=== PATIENT | male | born 1950 | race Caucasian/White ===

== ENCOUNTER → 2018-05-19 | Outpatient (CLI) | payer MEDICARE ==
[~2018-05-19] VITALS: Ht 175.3 cm; Wt 103.9 kg
[~2018-05-19] MED LIST: ARTIFICIAL TEAR15 M1 OPHTHALMIC; ASPERDRINK81 MG PO; ASPIR 8181 MG PO; CARDIZEM CD 30300 M1 PO; CARTIA XT240 M1 PO; EFFIENT10 MG PO; FISH OIL 1,001000 M2 PO; GLUCOPHAGE XR500 MG PO; GLUCOPHAGE500 MG PO; HYDRALAZINE 10M10 MG PO; HYDRALAZINE 5050 MG PO; HYDROCHLOROTHIA25 M1 PO; I-CAPS AREDS S1 EACH PO; LISINOPRIL30 MG PO; METFORMIN HCL500 MG PO; MULTI VITAMIN1 EACH PO; NICOTINE TRANSD21 M1 TRANSDERM; NITROGLYCERIN0.4 MG SUBLING; PLAVIX 75 MG TA75 M1 PO; POTASSIUM CITR10 ME1 PO; SIMVASTATIN40 MG PO; VITAMIN B-12500 MCG PO; VITAMIN D31000 UNI2 PO; VITAMIN D5000 UNIT PO
[2018-05-19 09:11] VITALS: BP 156/69
[2018-05-19 09:32] LABS: HEMATOCRIT 45.3 % (42.0-52.0); HEMOGLOBIN 15.4 gm/dL (14.0-18.0); MCH 29.9 pg (26.0-34.0); MCHC 33.9 g/dL (28.0-37.0); MCV 88.2 fL (80.0-100.0); RBC 5.14 mil/uL (4.50-6.00); RDW-CV 13.5 % (10.5-14.5); WBC 10.4 thou/uL (4.0-11.0)
[2018-05-19 09:41] LABS: ANION GAP 10 mmol/L (7-16); BUN 15 mg/dL (7-18); CALCIUM 9.6 mg/dL (8.5-10.1); CHLORIDE 102 mmol/L (98-107); CO2 28 mmol/L (21-32); CREATININE 1.3 mg/dL (0.6-1.3); GLUCOSE 201 mg/dL (70-99); POTASSIUM 3.9 mmol/L (3.5-5.1); SODIUM 140 mmol/L (136-145)
[2018-05-19 09:46] LABS: ALBUMIN 3.6 g/dL (3.4-5.0); ALKALINE PHOSPHATASE 67 U/L (46-116); SGOT 20 U/L (15-37); SGPT 27 U/L (30-65); TOTAL BILIRUBIN 0.5 mg/dL (<0.1-1.0); TOTAL PROTEIN 7.9 g/dL (6.4-8.2)
[2018-05-19 10:12] LABS: CHOLESTEROL 145 mg/dL (<200); HDL CHOLESTEROL 37 mg/dL (>40); LDL CHOLESTEROL 76 mg/dL (<100); TC:HDL 3.9 Ratio (Not establshd); TRIGLYCERIDE 163 mg/dL (<150); VLDL 33 mg/dL (<40)
[2018-05-19 10:13] LABS: SERUM ASSESSMENT Clear
[2018-05-19 12:14] VITALS: BP 163/58
[2018-05-19 12:33] VITALS: BP 153/73
[2018-05-19 14:09] VITALS: BP 167/79
--- NOTE | 2018-05-19 15:37 | EKG ---
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
--- NOTE | 2018-05-19 16:35 | CARD ---
[address] [address] CARDIAC CATH REPORT Name: MICHAELLONNY MYERS Room: [facility] KARIN OjedaSuzanna.#: [id number] Admission: 05/19/18 Attend Phys: Skip Mari MD, Discharge: Date of : 46 Report #: [id number] THIS REPORT FOR: //name// APPROVED REPORT Study performed: 05/19/2018 10:48:29 Patient Details The patient is a 67 year-old male Event Personnel Tatianna Rader RN Delivery Director, Segun Rollins Holkins, John Physical Therapy Attendant, Lonny Busby Scrub Procedures Performed Left Heart Cath w/or w/o Coronaries [id number] [facility] , Right transradial approachLeft Heart Cath w/or w/o Coronaries [id number] [facility] , Left Heart Catheterization Indication Positive stress test Risk Factors Hypercholesterolemia, Hypertension Previous Procedures/Diagnoses Previous PCI Procedure Narrative The patient was brought electively to the Cardiac Catheterization Laboratory and was prepped and draped in a sterile manner. The right femoral was infiltrated with 2% Lidocaine subcutaneous anesthesia. A [place] 6 FR sheath was inserted into the right femoral artery. Coronary angiography was performed using coronary diagnostic catheters. The right coronary system was accessed and visualized with a JL4 catheter. The left coronary system was accessed and visualized with a LR4 catheter. The left ventricle was accessed and visualized with a Straight PIG catheter. Left ventricular/Aortic Valve gradient assessed via catheter pullback. Pre-demployment femoral angiogram was performed . Closure device was deployed with a Fr Mynx. The patient tolerated the procedure well and there were no complications associated with the procedure. There was no hematoma. Intraoperative Conscious Sedation Sedation start time: 1110 Case end Time: [place] [address] CARDIAC CATH REPORT Name: LONNY RODRIGUEZ Room: [facility]#: [id number] Admission: 05/19/18 Attend Phys: Skip Mari MD, Discharge: Date of : 46 Report #: [id number] Fentanyl 25.0 mcg Versed 2.0 mg Dose: 154 mGy Contrast Type and Amount: Visipaque 130 ml Diagnostic Cath Left Main 30% distal left main coronary artery narrowing LAD A 90% ostial proximal LAD stenosis with aneurysmal dilatation of the prominent first diagonal branch Circumflex 90% heavily calcified proximal circumflex stenosis with 50% calcified mid vessel stenosis Right Coronary Large dominant vessel with 90% heavily calcified proximal stenosis with aneurysmal dilatation of the proximal mid and distal portions Left Ventriculography The left ventricle is normal in size with normal contractility. The left ventricular ejection fraction is estimated to be 60%. Left ventricular wall motion abnormalities are present. There is no mitral insufficiency. Mild anterior hypokinesis is noted Hemodynamics The aortic pressure is 136/50 mmHg with a mean of 82 mmHg. The left ventricular pressure is 140/2 mmHg with a mean of mmHg. The left ventricular end diastolic pressure is 14 mmHg. There was no gradient across the aortic valve upon pullback. Conclusion #1 significant coronary artery disease characterized by the following: A 30% distal left main coronary artery narrowing B 80-90% eccentric heavily calcified proximal LAD stenosis with aneurysmal dilatation of the proximal portion of the first diagonal branch C 90% heavily calcified proximal circumflex stenosis with 50% calcified mid circumflex stenosis B large dominant right coronary artery with 90% heavily calcified proximal stenosis with aneurysmal dilatation of the proximal mid and distal portions of this dominant vessel #2 normal left-[place] [address] CARDIAC CATH REPORT Name: MICHAELLONNY MYERS Room: [facility]#: [id number] Admission: 05/19/18 Attend Phys: Skip Mari MD, Discharge: Date of : 46 Report #: [id number] #3 normal left ventricular ejection fraction of 60% with mild anterior hypokinesis noted Recommendations Cardiac Risk Reduction Program CABG Diagnostic Cath Approved by: Skip Mari MD Date/Time: 05/19/2018 16:34:27 <ELECTRONICALLY SIGNED> By: Skip Mari MD, [facility] 05/19/18 1635 1635 1635John Rosalia Mari MD, FACC /INF
== END | disposition home or self-care (01) ==
LOC: M.CL 08:57
PROVIDERS: Internal Medicine
DX: I25.10 Atherosclerotic heart disease of native coronary artery without angina pectoris (principal); I10 Essential (primary) hypertension; E11.9 Type 2 diabetes mellitus without complications; E78.00 Pure hypercholesterolemia, unspecified; Z96.651 Presence of right artificial knee joint; Z87.442 Personal history of urinary calculi; Z79.82 Long term (current) use of aspirin; Z79.899 Other long term (current) drug therapy; Z79.01 Long term (current) use of anticoagulants

== ENCOUNTER → 2018-08-15 | Outpatient (CLI) | payer MEDICARE | LOC: M.RAD 15:57 | DX: I70.0 Atherosclerosis of aorta (principal); Z88.5 Allergy status to narcotic agent ==

== ENCOUNTER 2018-09-22 09:27 | Inpatient (IN) | payer MEDICARE ==
[~2018-09-22] VITALS: Ht 172.7 cm; Wt 103.4 kg
[2018-09-22] MEDS ORDERED: ELIQUIS5 MG PO (10:17)
[2018-09-22 10:42] LABS: HEMATOCRIT 40.8 % (42.0-52.0); HEMOGLOBIN 13.3 gm/dL (14.0-18.0); MCH 26.1 pg (26.0-34.0); MCHC 32.6 g/dL (28.0-37.0); MCV 79.9 fL (80.0-100.0); MPV 7.8 fl. (7.2-11.1); RBC 5.11 mil/uL (4.50-6.00); RDW-CV 21.8 % (10.5-14.5); WBC 10.4 thou/uL (4.0-11.0)
[2018-09-22] MEDS ORDERED: IRON325 PO (10:47)
[2018-09-22 10:57] LABS: ALBUMIN 3.7 g/dL (3.4-5.0); CALCIUM 9.5 mg/dL (8.5-10.1); CREATININE 1.3 mg/dL (0.6-1.3); TOTAL BILIRUBIN 0.6 mg/dL (<0.1-1.0); TOTAL PROTEIN 7.7 g/dL (6.4-8.2)
[2018-09-22 11:00] VITALS: BP 152/69
[2018-09-22 12:00] VITALS: BP 161/61
--- NOTE | 2018-09-22 12:51 | EKG ---
[place] [address] ELECTROCARDIOGRAM REPORT Name: LONNY RODRIGUEZ Room: [address] ADM IN M.R.#: [id number] Admission: 09/22/18 Attend Phys: Skip Mari MD, Discharge: Date of : 46 Report #: [id number] THIS REPORT FOR: //name// [facility] Test Date: 2018-09-22 Test Time: 10:22:47 Pat Name: LONNY RODRIGUEZ Department: Room: [facility] Gender: M Electrical Calibrator: : 1950 Requested By: Skip Mari Order Number: [id number] Dio MD: Skip Mari Measurements Intervals [place] Rate: 55 P: [place]: QRS: -43 QRSD: 128 T: 240 QT: 562 QTc: 538 Interpretive Statements Atrial flutter LVH with IVCD, LAD and secondary repol abnrm Prolonged QT interval Baseline wander in lead(s) V2 Compared to ECG 05/19/2018 09:41:44 Intraventricular conduction delay more pronounced Prolonged QT interval now present Sinus rhythm no longer present Electronically Signed On 09-22-2018 12:50:57 CDT by Skip Mari [email or web address] <ELECTRONICALLY SIGNED> By: Skip Mari MD, FAC 09/22/18 1250 1022 1022 Skip Mari MD, FAC /EPI
[2018-09-22 16:00] VITALS: BP 150/57
--- NOTE | 2018-09-22 16:40 | NUR ---
pt admitted directly from pacu on tele floor report received from pacu nurse. pt is aox4 pleasant. on . oxygen saturation is 98%. vs taken. see chart. pt has no complaint at this time. tracing aflutter in the director of cardiac cath lab. heart rate in the 50s. pt ate dinner. pt up stand by. will continue to monitor
--- NOTE | 2018-09-22 17:07 | NUR ---
ELIQUIS PILL WAS BROUGHT UP BY PACU NURSE. WILL SAVE PILL IN PT PIXIS ACCESS BOX.
--- NOTE | 2018-09-22 17:46 | NUR ---
AMNIODERONE FIRST DOES ALREADY ADMINISTERED THIS AM. NEXT DOSE IS SCHEDULED FOR TONIGHT AT 2100
[2018-09-22 19:45] VITALS: BP 169/81
--- NOTE | 2018-09-22 20:34 | NUR ---
PATIENT'S HEART RATE LOWER 50'S, ASYMPTOMATIC. PATIENT HAS SCHEDULED CARDIZEM AND AMIODARONE FOR 2100. DR. MCKEON PAGED TO CLARIFY. ORDERS RECEIVED TO HOLD CARDIZEM AND ADMINISTER AMIODARONE.
[2018-09-23] VITALS (7 sets, daily range): BP systolic 124–169; BP diastolic 63–69
--- NOTE | 2018-09-23 05:40 | NUR ---
PATIENT PARTIALLY PROGRESSING TOWARDS GOALS: AFLUTTER RATE CONTROLLED WITH ORAL MEDS PER JUL. HEART RATE OCCASIONALLY DROPS TO UPPER 30'S BUT RETURNS TO 40-50S. PATIENT ASYMPTOMATIC. PATIENT ANTICIPATING CARDIOVERSION TOMORROW 09/24. DENIES PAIN AND DISCOMFORT. VERY PLEASANT THIS SHIFT. RESTED WELL. CALL LIGHT WITHIN REACH
--- NOTE | 2018-09-23 07:15 | NUR ---
ASSUMED CARE OF PT ASSESSED AND DOCUMENTED. PT IS ON CARDIAC MONITER TRACING A FLUTTER HR 61. PT IS A&O WITH NO C/O PAIN. HE IS ON ROOM AIR. VSS WNL. PT IS AFEBRILE. IS AT BEDSIDE. BED IS IN LOW POSTION CALL LIGHT IS IN REACH. WM.
--- NOTE | 2018-09-23 12:58 | EKG ---
[place] [address] ELECTROCARDIOGRAM REPORT Name: MICHAELLONNY PASHA Room: [address] ADM IN M.R.#: [id number] Admission: 09/22/18 Attend Phys: Skip Mari MD, Discharge: Date of : 46 Report #: [id number] THIS REPORT FOR: //name// [facility] Test Date: 2018-09-23 Test Time: 08:31:56 Pat Name: LONNY RODRIGUEZ Department: Room: [facility] Gender: M Supervisor Electrolytic Tinning: : 1950 Requested By: Skip Mari Order Number: [id number] Reading MD: Nas Zhang Measurements Intervals [place] Rate: 63 P: [place]: QRS: -49 QRSD: 136 T: QT: 472 QTc: 484 Interpretive Statements Atrial flutter LVH with IVCD, LAD and secondary repol abnrm Borderline prolonged QT interval Compared to ECG 09/22/2018 10:22:47 No significant changes Electronically Signed On 09-23-2018 12:58:12 CDT by Nas Zhang [email or web address] <ELECTRONICALLY SIGNED> By: Nas Zhang MD, [facility] 09/23/18 1258 0831 0831 Nas Zhang MD, [facility] /EPI
--- NOTE | 2018-09-23 15:42 | NUR ---
cm completed initial assessment to discss d/c planning. pt is a&ox4. pt present in room. pt active and independent w/all adl's. pt retired. still drives. pt has support from and extended family. pt has hx w/[facility]. pt is currently receiving cardiac rehab, outpatient therapy at [facility] in [place]. pt has c-pac machine at home that he uses sometimes. pt plans to contine w/therapy at time of d/c. cm to remain available to assist as needed.
--- NOTE | 2018-09-23 17:24 | NUR ---
PT HAS RESTED IN HIS ROOM WITH AT BEDSIDE. HE HAS HAD NO C/O PAIN OR DISCOMFORT. EDUCATION GIVEN ON DEMAND. HOURLY ROUNDING CONT.
[2018-09-24] VITALS (12 sets, daily range): BP systolic 133–169; BP diastolic 58–96
--- NOTE | 2018-09-24 07:05 | NUR ---
PATIENT PROGRESSING TOWARDS GOALS: REMAINS IN AFLUTTER, RATE CONTROLLED IN 40-60S. ASYMPTOMATIC DURING TIMES OF BRADYCARDIA. PATIENT ANTICIPATING BUDDY AND DCCV TODAY. NPO POST MIDNIGHT. CONSENT SIGNED AND IN CHART. CALL LIGHT WITHIN REACH
--- NOTE | 2018-09-24 10:29 | NUR ---
PT ALERT AND ORIENTED. TELE TRACKING AFLUTTER AND ALL VSS ON ROOM AIR. DENIES CP, SOA. REMAINS NPO FOR CARDIOVERSION LATER TODAY. EDUCATED ON SAFETY AND PLAN OF CARE. PLEASE SEE ASSESSMENT FOR ADDITIONAL INFORMATION. WILL CONT TO MONITOR
--- NOTE | 2018-09-24 10:38 | NUR ---
Pt to have cardioversion today.
--- NOTE | 2018-09-24 13:22 | EKG ---
[place] [address] ELECTROCARDIOGRAM REPORT Name: MICHAELLONNY PASHA Room: [address] ADM IN M.R.#: [id number] Admission: 09/22/18 Attend Phys: Skip Mari MD, Discharge: Date of : 46 Report #: [id number] THIS REPORT FOR: //name// [facility] Test Date: 2018-09-24 Test Time: 08:49:48 Pat Name: LONNY RODRIGUEZ Department: Room: [facility] Gender: M Boiler Erector: : 1950 Requested By: Skip Mari Order Number: [id number] Dio MD: Skip Mari Measurements Intervals [place] Rate: 54 P: [place]: QRS: -43 QRSD: 129 T: 165 QT: 463 QTc: 439 Interpretive Statements Atrial flutter LVH with IVCD, LAD and secondary repol abnrm Compared to ECG 09/23/2018 08:31:56 No significant changes Electronically Signed On 09-24-2018 13:22:07 CDT by Skip Mari [email or web address] <ELECTRONICALLY SIGNED> By: Skip Mari MD, [facility] 09/24/18 1322 0849 0849 Skip Mari MD, [facility] /EPI
[2018-09-25 04:00] VITALS: BP 134/53
--- NOTE | 2018-09-25 04:13 | NUR ---
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
[2018-09-25 05:19] LABS: CALCIUM 9.2 mg/dL (8.5-10.1); CREATININE 1.4 mg/dL (0.6-1.3); MAGNESIUM 2.1 mg/dL (1.8-2.4); POTASSIUM 3.9 mmol/L (3.5-5.1)
--- NOTE | 2018-09-25 06:47 | NUR ---
THIS NURSE ASSUMES CARE OF PT 09/24/18 AT 1930 PT ALERT AND ORIENTED, C/O LOW BACK PAIN AND REFUSES ANY INTERVENTION FOR PAIN, PT UP AND DOWN THROUGHOUT THE NIGHT FOR BRP WITH STANDBY ASSIST, DENIES ANY FURTHER DIZZINESS, IVF THERAPY COMPLETE PER MAR,PT CONTINUES TO COMPLAIN OF CONGESTION, DRY COUGH NOTED, PT EXPRESSES CONCERNS ABOUT DOSAGE OF LONGACTING INSULIN, ISSUES ADDRESSED WITH ZEINAB, NO FURTHER QUESTIONS/CONCERNS EXPRESSED, PT RESTING QUIETLY IN BED WITH FALL PRECAUTIONS IN PLACE
[2018-09-25 08:00] VITALS: BP 146/80
--- NOTE | 2018-09-25 09:27 | NUR ---
RECEIVED REPORT FROM LIV AND ASSUMED CARE OF PT @ 1678.PT IS A/O X4,VSS,TRACING SR WITH 1ST BBB ON THE MONITOR.PT REMAINS ON 2L O2 NC.IV PATENT AND SALINE LOCKED.PT IS CALM AND COOPERATIVE WITH NO C/O PAIN. AT BEDSIDE.PT IS UP AD PAPI IN ROOM WITH CALL LIGHT WITHIN REACH.WILL CONTINUE TO MONITOR.
[2018-09-25 10:46] VITALS: BP 146/80
[2018-09-25] MEDS ORDERED: AMIODARONE HCL100 MG PO (11:03)
--- NOTE | 2018-09-25 11:23 | NUR ---
PT OK FOR DISCHARGE.DISCHARGE PAPERWORK COMPLETED AND GIVEN TO PT.SCRIPT CALLED IN TO [facility] AND EDUCATION GIVEN TO PT.IV REMOVED.HEART MONITOR REMOVED AND RETURNED TO THE NURSING STATION.ALL PERSONAL BELONGINGS PACKED AND TAKEN WITH PT.FOLLOW UP APPOINTMENTS SCHEDULED BY CARDIAC NURSE.PT WHEELED OUT BY NURSING STAFF TO PERSONAL VEHICLE.
--- NOTE | 2018-09-25 17:37 | EKG ---
[place] [address] ELECTROCARDIOGRAM REPORT Name: MICHAELLONNY Room: [address] DIS IN M.R.#: [id number] Admission: 09/22/18 Attend Phys: Skip Mari MD, Discharge: 09/25/18 Date of : 46 Report #: [id number] THIS REPORT FOR: //name// [facility] Test Date: 2018-09-24 Test Time: 20:26:43 Pat Name: LONNY RODRIGUEZ Department: Room: [address] Gender: M Adon: SEVERO : 1950 Requested By: Skip Mari Order Number: [id number] Dio MD: Nas Zhang Measurements Intervals [place] Rate: 99 P: [place]: QRS: -50 QRSD: 133 T: 89 QT: 457 QTc: 587 Interpretive Statements Accelerated junctional rhythm Left bundle branch block Compared to ECG 09/24/2018 08:49:48 Accelerated junctional rhythm now present Left bundle-branch block now present Atrial flutter no longer present Intraventricular conduction delay no longer present Left ventricular hypertrophy no longer present Early repolarization no longer present Electronically Signed On 09-25-2018 17:36:51 CDT by Nas Zhang [email or web address] <ELECTRONICALLY SIGNED> By: Nas Zhang MD, FACC 09/25/18 1736 25 25 Nas Zhang MD, [facility] /EPI
--- NOTE | 2018-09-25 17:38 | EKG ---
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 : 1950 Requested By: Skip Mari Order Number: [id number] Dio MD: Nas Zhang Measurements Intervals [place] Rate: 80 P: 4 MO: 248 QRS: -54 QRSD: 130 T: 132 QT: 426 QTc: 492 Interpretive Statements Sinus rhythm Prolonged MO interval Probable left atrial enlargement Nonspecific intraventricular conduction delay Compared to ECG 09/24/2018 08:49:48 Atrial flutter no longer present Intraventricular conduction delay no longer present Left ventricular hypertrophy no longer present Early repolarization no longer present Electronically Signed On 09-25-2018 17:38:28 CDT by Nas Zhang [email or web address] <ELECTRONICALLY SIGNED> By: Nas Zhang MD, FACC 09/25/18 1738 0205 0205 Nas Zhang MD, FACC /EPI
--- NOTE | 2018-09-25 17:39 | EKG ---
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 : 1950 Requested By: Nas Zhang Order Number: [id number] Dio MD: Nas Zhang Measurements Intervals [place] Rate: 51 P: 35 AR: 276 QRS: -47 QRSD: 127 T: 207 QT: 581 QTc: 536 Interpretive Statements Sinus rhythm with sinus pause Atrial premature complexes Sinus pause Prolonged AR interval Nonspecific intraventricular conduction delay Prolonged QT interval Compared to ECG 09/24/2018 08:49:48 Atrial premature complex(es) now present Sinus pause or arrest now present First degree AV block now present Prolonged QT interval now present Atrial flutter no longer present Electronically Signed On 09-25-2018 17:39:03 CDT by Nas Zhang [email or web address] <ELECTRONICALLY SIGNED> By: Nas Zhang MD, [facility] 09/25/18 1739 5 0256 Nas Zhang MD, [facility] /EPI
--- NOTE | 2018-09-26 10:56 | D ---
[facility] [address] [place] [address] DISCHARGE SUMMARY Name: LONNY RODRIGUEZ Room: [address] IN M.R.#: [id number] Admission: 09/22/18 Attend Phys: Skip Mari MD, Discharge: 09/25/18 Date of : 46 Report #: [id number] THIS REPORT FOR: //name// CC: Skip Winter DO DATE OF SERVICE: 09/24/2018 FINAL DIAGNOSES: 1. Atrial flutter (persistent). 2. Coronary artery disease, status post prior percutaneous coronary intervention and recent coronary artery bypass grafting. 3. Hypertension. 4. Hyperlipidemia. 5. Type 2 diabetes. HISTORY OF P RESENT ILLNESS: The patient is a very pleasant 67-year-old male who underwent coronary artery bypass grafting several months ago. Recently, he has been noted to have persistent atrial flutter. This persisted despite rate modulating agents. He ultimately was admitted on 09/22/2018 for amiodarone loading. He received 800 mg b.i.d. He had been anticoagulated for approximately 6 weeks prior to the admission. In this context, with persistent atrial fibrillation and despite amiodarone loading, he continued to demonstrate atrial flutter. He underwent DC cardioversion on 09/24/2018 with 200 joules delivered x 1 and the rhythm everting to a sinus mechanism, in which he has remained. The patient has underlying hypertension, hyperlipidemia and type 2 diabetes. Those were stable in the hospital. DISCHARGE MEDICATIONS: The patient was discharged to home on 09/25/2018 on the following medications: Amiodarone 400 mg b.i.d., apixaban or Eliquis 5 mg b.i.d., aspirin 81 mg b.i.d., vitamin D3 1000 units daily, vitamin B12 500 mcg daily, fish oil 1200 mg t.i.d., ferrous sulfate 325 mg daily, hydralazine 50 mg b.i.d., hydrochlorothiazide 25 mg daily, lisinopril 30 mg b.i.d., metformin 1000 mg b.i.d., multivitamin 1 tablet daily, and simvastatin 40 mg at bedtime. The patient is scheduled to return to see my nurse practitioner, Enma Thompson, in 1 week and I will plan to see him in 4 weeks with an echocardi[place] [address] DISCHARGE SUMMARY Name: LONNY RODRIGUEZ Room: [address]#: [id number] Admission: 09/22/18 Attend Phys: Skip Mari MD, Discharge: 09/25/18 Date of : 46 Report #: [id number] Thus, the patient is discharged to home in stable condition on the aforementioned medications with followup as iterated above. <ELECTRONICALLY SIGNED> By: Skip Mari MD, [facility] 09/26/18 1056 0943 1304Skip Mari MD, [facility] /nt
== END 2018-09-25 11:44 | disposition home or self-care (01) | DRG 309 ==
LOC: M.TBA 09:27 → M.2W 09:27
PROVIDERS: Internal Medicine Cardiovascular Disease; ADMIT Internal Medicine
DX: I48.92 Unspecified atrial flutter (principal); D68.69 Other thrombophilia; I48.1 Persistent atrial fibrillation; I10 Essential (primary) hypertension; I49.9 Cardiac arrhythmia, unspecified; E11.65 Type 2 diabetes mellitus with hyperglycemia; E78.5 Hyperlipidemia, unspecified; E78.00 Pure hypercholesterolemia, unspecified; I25.10 Atherosclerotic heart disease of native coronary artery without angina pectoris; Z95.5 Presence of coronary angioplasty implant and graft; Z95.1 Presence of aortocoronary bypass graft; Z79.899 Other long term (current) drug therapy; Z82.49 Family history of ischemic heart disease and other diseases of the circulatory system; Z87.891 Personal history of nicotine dependence; Z88.6 Allergy status to analgesic agent